=== PATIENT | male | born 1935 | race Caucasian/White ===

== ENCOUNTER 2018-02-15 06:10 | Inpatient (IN) | payer OTHER, MEDICARE ==
[2018-01-28 13:10] VITALS: BMI 29.9
[2018-02-15] MEDS ORDERED: MIDAZOLAM HCL 2 MG/2 ML SINGLE DOSE VIAL ONE (06:32)
[2018-02-15] MEDS ORDERED: SODIUM CHLORIDE 0.9% P/F 10 ML VIAL IJ ONE (06:33)
[2018-02-15] MEDS ORDERED: BUPIVACAINE LIPOSOME/PF (EXPAREL) 266 MG/20 ML VIAL ONE (06:33)
[2018-02-15] MEDS ORDERED: BUPIVACAINE HCL/PF (5 MG/ML) 30 ML VIAL IJ ONE (06:33)
[2018-02-15] MEDS ORDERED: ceFAZolin SODIUM 1 GM VIAL ONE ×2 (07:09→08:09)
[2018-02-15] MEDS ORDERED: VANCOMYCIN 1,000 MG VIAL (RESTRICTED TO ID ONLY) ONE (07:10)
[2018-02-15] MEDS ORDERED: oxyCODONE HCL 10 MG SUSTAINED ACTING TABLET PO ONE (07:17)
[2018-02-15] MEDS ORDERED: CEFAZOLIN 2 GM/D5W 2 GM/50 ML ML IVPB ONE (07:17)
[2018-02-15] MEDS ORDERED: TRANEXAMIC ACID 1000 MG/10 ML VIAL IVPUSH ONE (07:17)
--- NOTE | 2018-02-15 07:23 | HP ---
History & Physical Update - History History: No Change - Physical Physical: No Change - Assessment Assessment: No Change - Plan Plan: No Change (H&P in chart from 02/01/2018)
[2018-02-15] MEDS ORDERED: LIDOCAINE HCL/PF 2% SDV 5ML VIAL ONE (07:53)
[2018-02-15] MEDS ORDERED: PROPOFOL 20 ML ONE (07:55)
[2018-02-15] MEDS ORDERED: SUCCINYLCHOLINE CHLORIDE 200 MG/10 ML VIAL ONE (07:55)
[2018-02-15] MEDS ORDERED: TRANEXAMIC ACID 1000 MG/10 ML VIAL ONE ×2 (08:09→10:26)
[2018-02-15] MEDS ORDERED: ONDANSETRON 4 MG/2 ML VIAL ONE (08:16)
[2018-02-15] MEDS ORDERED: DEXAMETHASONE SOD PHOSPHATE 4 MG/1 ML VIAL ONE (08:16)
[2018-02-15] MEDS ORDERED: ROPIVICAINE 0.2%/MORPH PF/KETOROLAC - 51ML DISP.SYRINGE IA ONE ×2 (10:16→10:34)
[2018-02-15] MEDS ORDERED: ONDANSETRON 4 MG/2 ML VIAL IVPUSH PRN (10:50)
[2018-02-15] MEDS ORDERED: MAG HYDROX/AL HYDROX/SIMETH 30 ML UNIT-DOSE CUP PO PRN (10:50)
[2018-02-15] MEDS ORDERED: LACTATED RINGERS SOLUTION 1,000 ML IV SCH (11:00)
[2018-02-15] MEDS ORDERED: ACETAMINOPHEN 1000 MG/100 ML VIAL (NON FORMULARY) IVPB PRN (11:03)
--- NOTE | 2018-02-15 13:17 | PN ---
Physical Exam: SUBJECTIVE: Patient seen and examined, patient resting comfortably in bed, reports feeling well, denies any pain to the left lower extremity, patient is able to move the digits of the foot without any difficulty, and granddaughter at bedside OBJECTIVE: Patient is a 82 y/o male with a past medical history of bph and osteoarthritis, patient is s/p left total knee replacement, POD #0, spinal anesthesia. Vital Signs Period Temp Pulse Resp BP Sys/Gallo Pulse Ox Last 24 Hr 98.1 F-98.2 F 61-67 12-20 106-134/68-84 94-100 GENERAL: The patient is awake, alert, and fully oriented, in no acute distress. HEAD: Normal with no signs of trauma. EYES: PERRL, extraocular movements intact, sclera anicteric, conjunctiva clear. No ptosis. ENT: Ears normal, nares patent, oropharynx clear without exudates, moist mucous membranes. NECK: Trachea midline, full range of motion, supple. LUNGS: Breath sounds equal, clear to auscultation bilaterally, no wheezes, no crackles, no accessory muscle use. HEART: Regular rate and rhythm, S1, S2 without murmur, rub or gallop. ABDOMEN: Soft, nontender, nondistended, normoactive bowel sounds, no guarding, no rebound, no hepatosplenomegaly, no masses. EXTREMITIES: 2+ pulses, warm, well-perfused, no edema. LEFT LOWER EXTREMITY: Dressing CDI, less than 3 second capillary refill less than 3 second capillary refill, +3 pedal pulse, scd/ellen NEUROLOGICAL: Cranial nerves II through XII grossly intact. Normal speech, gait not observed. PSYCH: Normal mood, normal affect. SKIN: Warm, dry, normal turgor, no rashes or lesions noted Active Medications Generic Name Dose Route Start Last Admin Trade Name Freq PRN Reason Stop Dose Admin Acetaminophen 1,000 mg 02/15/18 14:00 Ofirmev Injection - IVPB 02/17/18 08:01 Q6H CHACHA Al Hydroxide/Mg Hydroxide 30 ml 02/15/18 10:50 Mylanta Oral Suspension - PO Q4H PRN DYSPEPSIA Aspirin 325 mg 02/16/18 10:00 Asa - PO BID CHACHA Fentanyl 25 mcg 02/15/18 11:05 Sublimaze Injection - IVPUSH [id number] PRN PAIN-PACU ORDER X 4 DOSES ONLY Ferrous Sulfate 325 mg 02/16/18 10:00 Feosol - PO DAILY [facility] Finasteride 5 mg 02/15/18 22:00 Proscar - PO HS [facility] Cefazolin Sodium 1 gm in 50 mls @ 100 mls/hr 02/15/18 17:00 Ancef 1 Gm Premixed Ivpb - IVPB 02/15/18 18:29 Q8H-IV CHACHA Lactated Ringer's 1,000 mls @ 125 mls/hr 02/15/18 11:00 Lactated Ringers Solution IV 02/16/18 06:00 ASDIR [facility]AC[facility] Lactated Ringer's 1,000 mls @ 75 mls/hr 02/15/18 11:15 Lactated Ringers Solution IV ASDIR [facility] Multivitamins/Minerals/Vitamin C 1 tab 02/16/18 10:00 Tab-A-Vit - PO DAILY [facility] Non-Formulary Medication 10 mg 02/15/18 22:00 Lovastatin [Lovastatin] PO HS [facility] Ondansetron HCl 4 mg 02/15/18 10:50 Zofran Injection IVPUSH Q6H PRN NAUSEA Oxycodone HCl 5 mg 02/15/18 11:05 Roxicodone - PO Q3H PRN PAIN LEVEL 1-5 Oxycodone HCl 10 mg 02/15/18 11:05 Roxicodone - PO Q3H PRN PAIN LEVEL 6-10 Oxycodone HCl 10 mg 02/15/18 22:00 Oxycontin - PO 02/18/18 11:05 BID [facility] Pantoprazole Sodium 40 mg 02/16/18 10:00 Protonix - PO DAILY [facility] Senna/Docusate Sodium 1 tablet 02/15/18 22:00 Pericolace - PO BID [facility] Tamsulosin HCl 0.4 mg 02/15/18 22:00 Flomax - PO HS [facility] ASSESSMENT/PLAN: 1) MS s/p left total knee replacement - prn pain medications - incentive spirometer - monitor hemoglobin - physical therapy as per orthopedist 2) BPH - continue flomax and proscar - monitor i/o for sign of urinary retention f/e/n - regular diet - replete electrolytes prn ppx - asa 325 mg twice a day as per orthopedist - physical therapy - protonix dispo: patient requires inpatient admission Visit type - Emergency Visit Emergency Visit: No - New Patient This patient is new to me today: No - Critical Care Critical Care patient: No - Discharge Referral Referred to [facility] Med [facility].C[facility] No
[2018-02-15] MEDS: ACETAMINOPHEN 1000 MG/100 ML VIAL (NON FORMULARY) IVPB SCH ×2 (13:42→20:38)
--- NOTE | 2018-02-15 13:47 | OP ---
Operative Note - Note: Operative Date: 02/15/18 Pre-Operative Diagnosis: Left knee osteoarthritis Operation: Left total knee makoplasty Post-Operative Diagnosis: Same as Pre-op Surgeon: Jimmy Lopez Meter Tester: Jeni Henning Anesthesiologist/WATER POLLUTION CONTROL TECHNICIAN: Kya Rosenberg Anesthesia: Spinal, Local (block) Specimens Removed: distal femur, proximal tibia Estimated Blood Loss (mls): 50 Fluid Volume Replaced (mls): 1,600 Operative Report Dictated: Yes
[2018-02-15] MEDS: CEFAZOLIN 1 GM/D5W 1 GM/50 ML BAG IVPB SCH ×2 (16:52→18:42)
--- NOTE | 2018-02-15 18:24 | OP ---
DATE OF OPERATION: DATE OF DICTATION: 02/15/2018 PREOPERATIVE DIAGNOSIS: Left knee osteoarthritis. POSTOPERATIVE DIAGNOSIS: Left knee osteoarthritis. OPERATION PERFORMED: Left cemented posterior stabilized total knee arthroplasty with the Kel robot. SURGEON: Jimmy Del Toro M.D. REAL ESTATE SALESPERSON: Nghia Hanna TYPE OF ANESTHESIA: Spinal and block. DISPOSITION: Patient returned to recovery room in stable condition. COMPONENTS USED: [place] [employer] size 5 left posterior stabilized femur, size 6 tibia, 9-mm posterior stabilized articular insert, and 31-mm patella. ESTIMATED BLOOD LOSS: 50 mL. TOTAL TOURNIQUET TIME: 120 minutes. RELEASES: Medial release. PREOPERATIVE RANGE OF MOTION: 19 degrees flexion contracture, 105 degrees of flexion, and 13 degrees of varus. FINDINGS: Severe end stage tricompartmental arthritis. INDICATION FOR PROCEDURE: Patient failed nonoperative treatment for left knee arthritis, was indicated for left total knee replacement, using a coat feller in the office and also at the hospital using a coat feller phone, I had a long discussion with the patient regarding the plan, the expected outcome, and the risks, benefits, and alternatives of surgery that including but not limited to infection which may require future surgery and removal of implants, bleeding which may require transfusion, damage to nerves, arteries, tendons, veins, muscles, and other adjacent structures leading to possible numbness, weakness, decreased function, and/or possible need for surgical repair. Also discussed possibility of intraoperative and postoperative fractures, implant loosening, stiffness, need for extensive therapy and need for revision for a variety of reasons. We also discussed blood clots and other medical complications, this was discussed at length. The consent was obtained. PROCEDURE IN DETAIL: Patient was taken to the operating room and placed on the operating table in a supine position following induction of spinal anesthesia, a well padded tourniquet was placed high on the left thigh, and the left lower extremity was prepped and draped in a sterile fashion. A timeout was performed to confirm the correct side, verified that the site was marked, confirmed the correct patient and procedure to be performed, as well as the patient was registered in the [email or web address] computer and received appropriate preoperative antibiotics and tranexamic acid, and had a compression device on the nonoperative site. We then placed our tibial and femoral arrays through stab incisions and blunt dissection, registered the hip center and the malleoli. We then elevated the tourniquet and performed a midline incision followed by medial parapatellar arthrotomy. Checkpoints were placed, bone was registered, osteophytes removed, joint was stressed and then plan was adjusted. We then made our bony cuts while protecting the surrounding soft tissues. A laminar asphalt spreader was placed sequentially in lateral and medial joint spaces. Posterior osteophytes, cruciate ligaments, and menisci were all excised. With a spacer block, we were still tight medially. We slid a periosteal elevator down the medial tibia, and then were appropriately removing soft tissue off the medial tibia, and the medial osteophytes. We then placed a trial tibial component in appropriate external rotation. We placed a femoral spreader box operator and cut the box, and then placed a femoral trial. With a 9 mm polyethylene, we had full extension and flexion to 130, and the patella tracked slightly laterally. We then measured the patella at 25 mm. We cut down to 14.5 mm and reconstructed with a 31-mm button, and performed a lateral double cut. We slightly externally rotated the tibial component more as well. With the patella trial in place, the patella tracked centrally. There was good stability, range of motion, and soft tissue tension. The tibial trial was then punched in the appropriate external rotation, trials were removed. After a 3-minute soak with diluted Betadine solution, the knee was copiously irrigated. We did perform sequential starting with the tibia and then the femur. Excess cement was removed. We inserted the final polyethylene, and it seated flush. The knee was brought to full extension. The patella was cemented, and excess cement was removed. When all the cement was hard, we copiously irrigated the knee. All excess cement was removed. The knee had full extension, flexion to 130, was well balanced in flexion and extension, and the patella tracked centrally. The knee was copiously irrigated. A gram of vancomycin powder was placed. The joint cocktail was injected. Arrays and checkpoints were removed. The arthrotomy was closed with 0 Vicryl and 0 V-Loss of consciousness; with the arthrotomy closed, there was good stability, soft tissue tension, and patella tracked centrally. 2-0 Vicryl yaima were used for the skin. The knee was wrapped in a dry sterile compressive dressing and the tourniquet was released. The compartments were soft at the end of the procedure. Pulses were palpated. The patient was returned to the recovery wound in stable condition. Mobilize, weightbearing as tolerated. Wound classification clean. Complications none. Specimens bone. JIMMY DEL TORO M.D. [id number]
[2018-02-15] MEDS ORDERED: TRANEXAMIC ACID 1000 MG/10 ML VIAL IVPB ONE (18:45)
[2018-02-15] MEDS: oxyCODONE HCL 10 MG SUSTAINED ACTING TABLET PO SCH (21:12)
[2018-02-15] MEDS: SENNOSIDES/DOCUSATE COMBO (SENNA PLUS) TABLET (UD) PO SCH (21:12)
[2018-02-15] MEDS: TAMSULOSIN HCL 0.4 MG CAP.ER.24H (FP) PO SCH (21:12)
[2018-02-15] MEDS: FINASTERIDE 5 MG TABLET (FP) PO SCH (21:13)
[2018-02-15] MEDS ORDERED: PATIENT'S OWN MEDICATION (NON-FORMULARY) (Lovastatin [Lovastatin] 10 MG) PO SCH (22:00)
[2018-02-16] MEDS ORDERED: CEFAZOLIN 1 GM/D5W 1 GM/50 ML BAG IVPB SCH (01:00)
[2018-02-16] MEDS: oxyCODONE HCL 5 MG TABLET PO PRN ×2 (01:36→14:17)
[2018-02-16] MEDS: ACETAMINOPHEN 1000 MG/100 ML VIAL (NON FORMULARY) IVPB SCH ×4 (01:37→20:26)
[2018-02-16] MEDS ORDERED: TRANEXAMIC ACID 1000 MG/10 ML VIAL IVPUSH ONE (07:06)
[2018-02-16 08:49] LABS: HEMATOCRIT 37.4 % (35.4-49); HEMOGLOBIN 13.1 GM/dl (11.7-16.9); MCH 32.1 pg (25.7-33.7); MCHC 35.1 g/dl (32.0-35.9); MEAN CELL VOLUME 91.6 fl (80-96); MEAN PLT VOLUME 7.2 fl (7.5-11.1); PLATELET COUNT 217 K/MM3 (134-434); RBC 4.08 M/mm3 (4.00-5.60); RDW 13.6 % (11.9-15.9); WHITE BLOOD COUNT 10.3 K/mm3 (4.0-10.8)
[2018-02-16 08:57] LABS: ANION GAP 5 (8-16); BLOOD UREA NITROGEN 25 mg/dl (7-18); CALCIUM 8.9 mg/dl (8.4-10.2); CHLORIDE 105 mmol/L (98-107); CO2 27 mmol/L (22-28); CREATININE 1.6 mg/dl (0.6-1.3); GLUCOSE,RANDOM 136 mg/dl (74-106); POTASSIUM 4.8 mmol/L (3.5-5.1); SODIUM 137 mmol/L (136-145)
--- NOTE | 2018-02-16 09:14 | PN ---
Progress Note (short form) - Note Progress Note: Patient seen and examined. Had bleeding overnight and dressing had to be reinforced multiple times and received additional dose of 1g TXA. Patient reports no pain in leg and no chest pain or shortness of breath. Vitals reviewed and wnl H/H from this morning reviewed and acceptable drop from pre-op, On exam No acute distress A and O x3 LLE: 2+ DP and PT pulses foot/toes warm and well profused compartments of leg and thigh soft and compressible Bandage saturated and removed incision clean and intact small seepage of dark blood from area at middle and distal incisions (between one set of yaima on each spot) Pressure held with gauze manually for 15 minutes and stopped bleeding Wiped incision with betadine New aquaacel placed with pressure dressing on top with steve and thigh high ellen Left room for 20 minutes and returned and found dressing to still be dry (no signs of bleeding through dressing anywhere) pulses, sensation, motor exam unchanged and compartments still all soft A/P: POD#1 s/p L TKA with postoperative bleeding -maintain pressure dressing and elevation of LE x24 hours -additional dose of 1.5g of TXA now -mechanical and ASA for VTE proph -skip PT today -recheck H/H tomorrow AM -discussed plan with nurse and patient
[2018-02-16] MEDS: FERROUS SO4 325 MG TABLET (FP) PO SCH (09:57)
[2018-02-16] MEDS: SENNOSIDES/DOCUSATE COMBO (SENNA PLUS) TABLET (UD) PO SCH ×2 (09:58→21:40)
[2018-02-16] MEDS: ASPIRIN 325 MG TABLET PO SCH ×2 (09:58→21:39)
[2018-02-16] MEDS: MULTIVITAMINS (DAILY MVI) TABLET (FP) PO SCH (09:58)
[2018-02-16] MEDS: PANTOPRAZOLE 40 MG TABLET (FP) PO SCH (09:58)
[2018-02-16] MEDS: oxyCODONE HCL 10 MG SUSTAINED ACTING TABLET PO SCH ×2 (10:00→21:39)
[2018-02-16] MEDS ORDERED: TRANEXAMIC ACID 1000 MG/10 ML VIAL IVPB ONE (12:00)
[2018-02-16] MEDS: LACTATED RINGERS SOLUTION 1,000 ML IV SCH ×2 (12:10→15:47)
--- NOTE | 2018-02-16 19:56 | PN ---
Physical Exam: SUBJECTIVE: Patient seen and examined at bedside. Denies pain. OBJECTIVE: Vital Signs Period Temp Pulse Resp BP Sys/Gallo Pulse Ox Last 24 Hr 97.6 F-99.0 F 65-85 18-20 104-124/58-78 96-97 GENERAL: The patient is awake, alert, and fully oriented, in no acute distress. LUNGS: CTA HEART: Regular rate and rhythm, S1, S2 ABDOMEN: Soft, nontender, nondistended LOWER EXTREMITIES: Surgical wrappings, TEDs, SCDs in place, all c/d/i; feet are warm, well-perfused, 2+ pulses, no edema. NEUROLOGICAL: Cranial nerves II through XII grossly intact. Normal speech, gait not observed. PSYCH: Normal mood, normal affect. SKIN: Warm, dry, normal turgor Laboratory Results - last 24 hr 02/16/18 02/16/18 07:10 07:10 WBC 10.3 RBC 4.08 Hgb 13.1 Hct 37.4 D MCV 91.6 MCH 32.1 MCHC 35.1 RDW 13.6 Plt Count 217 MPV 7.2 L Sodium 137 Potassium 4.8 Chloride 105 Carbon Dioxide 27 Anion Gap 5 L BUN 25 H Creatinine 1.6 H Creat Clearance w eGFR 41.80 Random Glucose 136 H D Calcium 8.9 Active Medications Generic Name Dose Route Start Last Admin Trade Name Rufinoq PRN Reason Stop Dose Admin Acetaminophen 1,000 mg 02/15/18 14:00 02/16/18 13:46 Ofirmev Injection - IVPB 02/17/18 08:01 1,000 mg Q6H CHACHA Administration Al Hydroxide/Mg Hydroxide 30 ml 02/15/18 10:50 Mylanta Oral Suspension - PO Q4H PRN DYSPEPSIA Aspirin 325 mg 02/16/18 10:00 02/16/18 09:58 Asa - PO 325 mg BID CHACHA Administration Fentanyl 25 mcg 02/15/18 11:05 Sublimaze Injection - IVPUSH [id number] PRN PAIN-PACU ORDER X 4 DOSES ONLY Ferrous Sulfate 325 mg 02/16/18 10:00 02/16/18 09:57 Feosol - PO 325 mg DAILY CHACHA Administration Finasteride 5 mg 02/15/18 22:00 02/15/18 21:13 Proscar - PO 5 mg HS CHACHA Administration Lactated Ringer's 1,000 mls @ 75 mls/hr 02/15/18 11:15 02/16/18 15:47 Lactated Ringers Solution IV Not Given ASDIR [facility] Multivitamins/Minerals/Vitamin C 1 tab 02/16/18 10:00 02/16/18 09:58 Tab-A-Vit - PO 1 tab DAILY CHACHA Administration Non-Formulary Medication 10 mg 02/15/18 22:00 Lovastatin [Lovastatin] PO HS [facility] Ondansetron HCl 4 mg 02/15/18 10:50 Zofran Injection IVPUSH Q6H PRN NAUSEA Oxycodone HCl 5 mg 02/15/18 11:05 Roxicodone - PO Q3H PRN PAIN LEVEL 1-5 Oxycodone HCl 10 mg 02/15/18 11:05 02/16/18 14:17 Roxicodone - PO 10 mg Q3H PRN Administration PAIN LEVEL 6-10 Oxycodone HCl 10 mg 02/15/18 22:00 02/16/18 10:00 Oxycontin - PO 02/18/18 11:05 10 mg BID [facility] Administration Pantoprazole Sodium 40 mg 02/16/18 10:00 02/16/18 09:58 Protonix - PO 40 mg DAILY [facility] Administration Senna/Docusate Sodium 1 tablet 02/15/18 22:00 02/16/18 09:58 Pericolace - PO 1 tablet BID [facility] Administration Tamsulosin HCl 0.4 mg 02/15/18 22:00 02/15/18 21:12 Flomax - PO 0.4 mg HS [facility] Administration ASSESSMENT/PLAN Left knee osteoarthritis s/p left total knee replacement 02/15 --post-op bleeding overnight requiring dressing changes, Hgb drop 15.9-->13.1 --no active bleeding now, surgical dressings c/d/i --dose of TXA ordered by surgery --cbc in am FREDI --Cr 1.1-->1.6 in setting of BPH --frequent urination but straight cath put out 620cc's --repeat bmp in am, if Cr still elevated consider US renal/bladder with post- void residual, urine studies BPH --continue flomax, proscar FEN Fluids: PO intake adequate Electrolytes: replete as indicated Nutrition: regular diet DVT prophylaxis: SCDs/TEDs and ASA Physical therapy Dispo: continues to require inpatient care. Full code. Visit type - Emergency Visit Emergency Visit: Yes ED Registration Date: 02/15/18 Care time: The patient presented to the Emergency Department on the above date and was hospitalized for further evaluation of their emergent condition. - New Patient This patient is new to me today: Yes Date on this admission: 02/16/18 - Critical Care Critical Care patient: No
[2018-02-16] MEDS: FINASTERIDE 5 MG TABLET (FP) PO SCH (21:40)
[2018-02-16] MEDS: TAMSULOSIN HCL 0.4 MG CAP.ER.24H (FP) PO SCH (21:40)
[2018-02-16 21:42] LABS: PH,URINE 5.5 (4.5-8); URINE APPEARANCE Clear; URINE BILIRUBIN Negative (NEGATIVE); URINE GLUCOSE (UA) Negative (NEGATIVE); URINE KETONE Negative (NEGATIVE); URINE LEUK ESTERASE Negative (NEGATIVE); URINE NITRITE Negative (NEGATIVE); URINE PROTEIN Negative (NEGATIVE); URINE UROBILINOGEN 0.2 (0.2-1.0)
[2018-02-16 21:59] LABS: URINE COLOR YELLOW
[2018-02-16 22:11] LABS: AMORP URATES FEW /hpf (NONE SEEN); EPI CELLS FEW /HPF; URINE BACTERIA RARE /hpf (NEGATIVE); URINE WBC 0-2 (0-2)
[2018-02-17] MEDS: ACETAMINOPHEN 1000 MG/100 ML VIAL (NON FORMULARY) IVPB SCH ×2 (01:16→09:32)
--- NOTE | 2018-02-17 08:44 | PN ---
Progress Note (short form) - Note Progress Note: Patient seen and examined. Cr elevated yesterday. No complaints. Pain well controlled. No numbness or tingling. Vitals reviewed and stable Dressing from yesterday morning still intact....no signs of bleeding Toes WWP, DP 2+ pulses EHL/TA/GS 5/5 strength sensation intact all nerve distributions A/P: POD#2 s/p TKA -fu Cr, if down then ok, but if not then will need medical workup -fu cbc if stable and clears PT then ok to dc home w vns, if not may need extra day dw hospitalist
[2018-02-17 09:14] LABS: ALBUMIN 3.4 g/dl (3.5-5.0); ALK PHOS 56 U/L (32-92); ANION GAP 10 (8-16); BLOOD UREA NITROGEN 30 mg/dl (7-18); CALCIUM 8.8 mg/dl (8.4-10.2); CHLORIDE 102 mmol/L (98-107); CO2 25 mmol/L (22-28); CREATININE 1.8 mg/dl (0.6-1.3); GLUCOSE,RANDOM 121 mg/dl (74-106); MAGNESIUM 1.9 mg/dL (1.8-2.4); POTASSIUM 4.5 mmol/L (3.5-5.1); SGOT/AST 26 U/L (10-42); SGPT/ALT 13 U/L (10-40); SODIUM 137 mmol/L (136-145); TOT PROT 6.2 g/dl (6.4-8.3)
[2018-02-17 09:21] LABS: HEMATOCRIT 38.1 % (35.4-49); HEMOGLOBIN 12.9 GM/dl (11.7-16.9); MCH 31.5 pg (25.7-33.7); MCHC 33.9 g/dl (32.0-35.9); MEAN CELL VOLUME 92.8 fl (80-96); MEAN PLT VOLUME 7.8 fl (7.5-11.1); PLATELET COUNT 212 K/MM3 (134-434); RDW 14.2 % (11.9-15.9)
[2018-02-17] MEDS: ASPIRIN 325 MG TABLET PO SCH ×2 (09:50→21:27)
[2018-02-17] MEDS: PANTOPRAZOLE 40 MG TABLET (FP) PO SCH (09:50)
[2018-02-17] MEDS: oxyCODONE HCL 10 MG SUSTAINED ACTING TABLET PO SCH ×2 (09:50→21:27)
[2018-02-17] MEDS: FERROUS SO4 325 MG TABLET (FP) PO SCH (09:50)
[2018-02-17] MEDS: SENNOSIDES/DOCUSATE COMBO (SENNA PLUS) TABLET (UD) PO SCH ×2 (09:50→21:28)
[2018-02-17] MEDS: MULTIVITAMINS (DAILY MVI) TABLET (FP) PO SCH (09:51)
--- NOTE | 2018-02-17 12:23 | PN ---
Physical Exam: SUBJECTIVE: Patient seen and examined, reports left knee pain well controlled, denies cp,sob palpitations, abdominal pain, N/V/D or urinary symptoms. OBJECTIVE: Vital Signs Period Temp Pulse Resp BP Sys/Gallo Pulse Ox Last 24 Hr 98.5 F-99.6 F 69-90 18-20 114-128/61-78 95-97 GENERAL: The patient is awake, alert, and fully oriented, in no acute distress. HEAD: Normal with no signs of trauma. EYES: PERRL, extraocular movements intact, sclera anicteric, conjunctiva clear. No ptosis. ENT: Ears normal, nares patent, oropharynx clear without exudates, moist mucous membranes. NECK: Trachea midline, full range of motion, supple. LUNGS: Breath sounds equal, clear to auscultation bilaterally, no wheezes, no crackles, no accessory muscle use. HEART: Regular rate and rhythm, S1, S2 without murmur, rub or gallop. ABDOMEN: Soft, nontender, nondistended, normoactive bowel sounds, no guarding, no rebound, no hepatosplenomegaly, no masses. EXTREMITIES: left knee dsg inract, no bleeding noted,2+ pulses, warm, well- perfused, no edema. NEUROLOGICAL: Cranial nerves II through XII grossly intact. Normal speech, gait not observed. PSYCH: Normal mood, normal affect. SKIN: Warm, dry, normal turgor, no rashes or lesions noted Laboratory Results - last 24 hr 02/16/18 02/17/18 02/17/18 21:30 07:00 07:00 WBC 10.0 RBC 4.10 Hgb 12.9 Hct 38.1 MCV 92.8 MCH 31.5 MCHC 33.9 RDW 14.2 Plt Count 212 MPV 7.8 Sodium 137 Potassium 4.5 Chloride 102 Carbon Dioxide 25 Anion Gap 10 BUN 30 H Creatinine 1.8 H Creat Clearance w eGFR 36.49 Random Glucose 121 H Calcium 8.8 Magnesium 1.9 Total Bilirubin 1.0 AST 26 D ALT 13 D Alkaline Phosphatase 56 D Total Protein 6.2 L Albumin 3.4 L Urine Color Yellow Urine Appearance Clear Urine pH 5.5 D Ur Specific [place] 1.010 Urine Protein Negative Urine Glucose (UA) Negative Urine Ketones Negative Urine Blood 1+ H Urine Nitrite Negative Urine Bilirubin Negative Urine Urobilinogen 0.2 Ur Leukocyte Esterase Negative Urine RBC 10-20 Urine WBC 0-2 Ur Epithelial Cells Few Amorphous Urates Few Urine Bacteria Rare Active Medications Generic Name Dose Route Start Last Admin Trade Name Fili PRN Reason Stop Dose Admin Acetaminophen 325 mg 02/17/18 09:33 Tylenol - PO Q4H PRN PAIN OR FEVER Al Hydroxide/Mg Hydroxide 30 ml 02/15/18 10:50 Mylanta Oral Suspension - PO Q4H PRN DYSPEPSIA Aspirin 325 mg 02/16/18 10:00 02/17/18 09:50 Asa - PO 325 mg BID [facility] Administration Fentanyl 25 mcg 02/15/18 11:05 Sublimaze Injection - IVPUSH [id number] PRN PAIN-PACU ORDER X 4 DOSES ONLY Ferrous Sulfate 325 mg 02/16/18 10:00 02/17/18 09:50 Feosol - PO 325 mg DAILY [facility] Administration Finasteride 5 mg 02/15/18 22:00 02/16/18 21:40 Proscar - PO 5 mg HS [facility] Administration Lactated Ringer's 1,000 mls @ 75 mls/hr 02/15/18 11:15 02/16/18 15:47 Lactated Ringers Solution IV Not Given ASDIR [facility] Multivitamins/Minerals/Vitamin C 1 tab 02/16/18 10:00 02/17/18 09:51 Tab-A-Vit - PO 1 tab DAILY [facility] Administration Non-Formulary Medication 10 mg 02/15/18 22:00 Lovastatin [Lovastatin] PO HS [facility] Ondansetron HCl 4 mg 02/15/18 10:50 Zofran Injection IVPUSH Q6H PRN NAUSEA Oxycodone HCl 5 mg 02/15/18 11:05 Roxicodone - PO Q3H PRN PAIN LEVEL 1-5 Oxycodone HCl 10 mg 02/15/18 11:05 02/16/18 14:17 Roxicodone - PO 10 mg Q3H PRN Administration PAIN LEVEL 6-10 Oxycodone HCl 10 mg 02/15/18 22:00 02/17/18 09:50 Oxycontin - PO 02/18/18 11:05 10 mg BID [facility] Administration Pantoprazole Sodium 40 mg 02/16/18 10:00 02/17/18 09:50 Protonix - PO 40 mg DAILY [facility] Administration Senna/Docusate Sodium 1 tablet 02/15/18 22:00 02/17/18 09:50 Pericolace - PO 1 tablet BID [facility] Administration Tamsulosin HCl 0.4 mg 02/15/18 22:00 02/16/18 21:40 Flomax - PO 0.4 mg HS [facility] Administration ASSESSMENT/PLAN: Patient is a 82 y/o male with a past medical history of bph and osteoarthritis, patient is s/p left total knee replacement on 02/15/2018 *Left knee osteoarthritis s/p left total knee replacement 02/15 -post-op bleeding resolved -Hgb drop 15.9-->13.1>12.9 -surgical dressings c/d/i - will f/u on CBC - sx following - PT eval done rec Home PT *FREDI, hx of BPH -Cr 1.1-->1.6 >1.8 - will start gentle hydration -ordered Renal US *BPH - will continue Flomax and Proscar FEN Fluids: PO intake adequate Electrolytes: replete as indicated Nutrition: regular diet DVT prophylaxis: SCDs/TEDs and ASA Dispo: continues to require inpatient care. Full code. Visit type - Emergency Visit Emergency Visit: Yes ED Registration Date: 02/15/18 Care time: The patient presented to the Emergency Department on the above date and was hospitalized for further evaluation of their emergent condition. - New Patient This patient is new to me today: Yes Date on this admission: 02/17/18 - Critical Care Critical Care patient: No
[2018-02-17] MEDS ORDERED: SODIUM CHLORIDE 1,000 ML IV SCH (12:45)
[2018-02-17] MEDS: LACTATED RINGERS SOLUTION 1,000 ML IV SCH (14:14)
[2018-02-17] MEDS: oxyCODONE HCL 5 MG TABLET PO PRN (14:16)
[2018-02-17] MEDS: TAMSULOSIN HCL 0.4 MG CAP.ER.24H (FP) PO SCH (21:27)
[2018-02-17] MEDS: ACETAMINOPHEN 325 MG TABLET (FP) PO PRN (21:28)
[2018-02-17] MEDS: FINASTERIDE 5 MG TABLET (FP) PO SCH (21:28)
[2018-02-18 08:20] LABS: BASO % 0.3 % (0-2.0); EOS % 1.4 % (0-4.5); HEMATOCRIT 34.8 % (35.4-49); LYMPH % 9.9 % (8-40); MCH 31.6 pg (25.7-33.7); MCHC 34.3 g/dl (32.0-35.9); MEAN PLT VOLUME 7.6 fl (7.5-11.1); MONO % 9.5 % (3.8-10.2); NEUT % 78.9 % (42.8-82.8); PLATELET COUNT 198 K/MM3 (134-434); RBC 3.78 M/mm3 (4.00-5.60); RDW 14.1 % (11.9-15.9); WHITE BLOOD COUNT 9.1 K/mm3 (4.0-10.8)
[2018-02-18 08:58] LABS: ANION GAP 8 (8-16); BLOOD UREA NITROGEN 50 mg/dl (7-18); CALCIUM 8.5 mg/dl (8.4-10.2); CHLORIDE 101 mmol/L (98-107); CO2 25 mmol/L (22-28); CREATININE 4.1 mg/dl (0.6-1.3); GLUCOSE,RANDOM 99 mg/dl (74-106); POTASSIUM 5.4 mmol/L (3.5-5.1); SODIUM 134 mmol/L (136-145)
--- NOTE | 2018-02-18 09:35 | PN ---
Physical Exam: SUBJECTIVE: Patient seen and examined, Resting comfortably a bedside chair, reports discomfort for Licea catheter to urinary meatus OBJECTIVE: Patient is a 82 y/o male with a past medical history of bph and osteoarthritis, patient is s/p left total knee replacement, POD #3, spinal anesthesia. Vital Signs Period Temp Pulse Resp BP Sys/Gallo Pulse Ox Last 24 Hr 98.9 F-99.8 F 78-90 17-20 113-147/67-83 94-98 GENERAL: The patient is awake, alert, and fully oriented, in no acute distress. HEAD: Normal with no signs of trauma. EYES: PERRL, extraocular movements intact, sclera anicteric, conjunctiva clear. No ptosis. ENT: Ears normal, nares patent, oropharynx clear without exudates, moist mucous membranes. NECK: Trachea midline, full range of motion, supple. LUNGS: Breath sounds equal, clear to auscultation bilaterally, no wheezes, no crackles, no accessory muscle use. HEART: Regular rate and rhythm, S1, S2 without murmur, rub or gallop. ABDOMEN: Soft, nontender, nondistended, normoactive bowel sounds, no guarding, no rebound, no hepatosplenomegaly, no masses. : Licea catheter, continue clear yellow urine noted EXTREMITIES: 2+ pulses, warm, well-perfused, no edema. NEUROLOGICAL: Cranial nerves II through XII grossly intact. Normal speech, gait not observed. PSYCH: Normal mood, normal affect. SKIN: Warm, dry, normal turgor, no rashes or lesions noted Laboratory Results - last 24 hr 02/18/18 02/18/18 07:15 07:15 WBC 9.1 RBC 3.78 L Hgb 12.0 Hct 34.8 L MCV 92.0 MCH 31.6 MCHC 34.3 RDW 14.1 Plt Count 198 MPV 7.6 Absolute Neuts (auto) 7.2 Neutrophils % 78.9 D Lymphocytes % 9.9 D Monocytes % 9.5 Eosinophils % 1.4 Basophils % 0.3 Sodium 134 L Potassium 5.4 H Chloride 101 Carbon Dioxide 25 Anion Gap 8 BUN 50 H Creatinine 4.1 H Creat Clearance w eGFR 14.11 Random Glucose 99 Calcium 8.5 Active Medications Generic Name Dose Route Start Last Admin Trade Name Freq PRN Reason Stop Dose Admin Acetaminophen 325 mg 02/17/18 09:33 02/17/18 21:28 Tylenol - PO 325 mg Q4H PRN Administration PAIN OR FEVER Al Hydroxide/Mg Hydroxide 30 ml 02/15/18 10:50 Mylanta Oral Suspension - PO Q4H PRN DYSPEPSIA Aspirin 325 mg 02/16/18 10:00 02/17/18 21:27 Asa - PO 325 mg BID CHACHA Administration Fentanyl 25 mcg 02/15/18 11:05 Sublimaze Injection - IVPUSH [id number] PRN PAIN-PACU ORDER X 4 DOSES ONLY Ferrous Sulfate 325 mg 02/16/18 10:00 02/17/18 09:50 Feosol - PO 325 mg DAILY CHACHA Administration Finasteride 5 mg 02/15/18 22:00 02/17/18 21:28 Proscar - PO 5 mg HS [facility] Administration Lactated Ringer's 1,000 mls @ 75 mls/hr 02/15/18 11:15 02/17/18 14:14 Lactated Ringers Solution IV Not Given ASDIR CHACHA Sodium Chloride 1,000 mls @ 50 mls/hr 02/17/18 12:45 02/17/18 14:13 Normal Saline - IV 02/18/18 12:32 50 mls/hr ASDIR CHACHA Administration Multivitamins/Minerals/Vitamin C 1 tab 02/16/18 10:00 02/17/18 09:51 Tab-A-Vit - PO 1 tab DAILY CHACHA Administration Non-Formulary Medication 10 mg 02/15/18 22:00 Lovastatin [Lovastatin] PO HS [facility] Ondansetron HCl 4 mg 02/15/18 10:50 Zofran Injection IVPUSH Q6H PRN NAUSEA Oxycodone HCl 5 mg 02/15/18 11:05 02/17/18 14:16 Roxicodone - PO 5 mg Q3H PRN Administration PAIN LEVEL 1-5 Oxycodone HCl 10 mg 02/15/18 11:05 02/16/18 14:17 Roxicodone - PO 10 mg Q3H PRN Administration PAIN LEVEL 6-10 Oxycodone HCl 10 mg 02/15/18 22:00 02/17/18 21:27 Oxycontin - PO 02/18/18 11:05 10 mg BID CHACHA Administration Pantoprazole Sodium 40 mg 02/16/18 10:00 02/17/18 09:50 Protonix - PO 40 mg DAILY CHACHA Administration Senna/Docusate Sodium 1 tablet 02/15/18 22:00 02/17/18 21:28 Pericolace - PO 1 tablet BID CHACHA Administration Tamsulosin HCl 0.4 mg 02/15/18 22:00 02/17/18 21:27 Flomax - PO 0.4 mg HS CHACHA Administration IMAGING ULTRASOUND OF KIDNEY/PELVIS: lARGE POST VOID RESIDUAL NOTED OF 670 Ml, MILD RIGHT HYDRONEPHROSIS ASSESSMENT/PLAN: 1) left knee osteoarthritis s/p left total knee replacement 02/15 - no post-op bleeding Noted - hemoglobin 12.9 -surgical dressings c/d/i - Physical therapy 2)Nephrology - creatine 4.1, Secondary to obstructive uropathy, Licea catheter placed, repeat BMP at 1800, strict monitoring of creatine, if not improving will consult nephrology. - patient does have a known history of bph, continue flomax and proscar, pt will require outpatient follow up with urology. f/e/n - low sodium diet - replete electrolytes prn ppx - aspirin as per physical therapy - pepcid dispo: pt requires inpatient admission secondary to FREDI Visit type - Emergency Visit Emergency Visit: No - New Patient This patient is new to me today: No - Critical Care Critical Care patient: No - Discharge Referral Referred to [facility] Med P.C.: No
[2018-02-18] MEDS: FERROUS SO4 325 MG TABLET (FP) PO SCH (09:48)
[2018-02-18] MEDS: SENNOSIDES/DOCUSATE COMBO (SENNA PLUS) TABLET (UD) PO SCH ×2 (09:48→21:15)
[2018-02-18] MEDS: ASPIRIN 325 MG TABLET PO SCH ×2 (09:49→21:15)
[2018-02-18] MEDS: PANTOPRAZOLE 40 MG TABLET (FP) PO SCH (09:49)
[2018-02-18] MEDS: oxyCODONE HCL 5 MG TABLET PO PRN ×3 (09:49→21:16)
[2018-02-18] MEDS: MULTIVITAMINS (DAILY MVI) TABLET (FP) PO SCH (09:49)
[2018-02-18] MEDS: oxyCODONE HCL 10 MG SUSTAINED ACTING TABLET PO SCH (09:50)
[2018-02-18] MEDS: LACTATED RINGERS SOLUTION 1,000 ML IV SCH (11:32)
[2018-02-18 18:26] LABS: ANION GAP 9 (8-16); BLOOD UREA NITROGEN 39 mg/dl (7-18); CALCIUM 8.6 mg/dl (8.4-10.2); CHLORIDE 99 mmol/L (98-107); CO2 23 mmol/L (22-28); CREATININE 2.5 mg/dl (0.6-1.3); GLUCOSE,RANDOM 167 mg/dl (74-106); POTASSIUM 4.7 mmol/L (3.5-5.1); SODIUM 131 mmol/L (136-145)
[2018-02-18] MEDS: FINASTERIDE 5 MG TABLET (FP) PO SCH (21:15)
[2018-02-18] MEDS: TAMSULOSIN HCL 0.4 MG CAP.ER.24H (FP) PO SCH (21:15)
[2018-02-18] MEDS: ACETAMINOPHEN 325 MG TABLET (FP) PO PRN (21:16)
[2018-02-18] MEDS ORDERED: ACETAMINOPHEN 325 MG TABLET (FP) PO PRN (22:53)
[2018-02-18 23:18] LABS: EOS % 0.8 % (0-4.5); HEMATOCRIT 35.4 % (35.4-49); HEMOGLOBIN 12.4 GM/dl (11.7-16.9); LYMPH % 7.1 % (8-40); MCH 31.5 pg (25.7-33.7); MCHC 34.9 g/dl (32.0-35.9); MEAN CELL VOLUME 90.2 fl (80-96); MONO % 9.3 % (3.8-10.2); NEUT % 81.8 % (42.8-82.8); PLATELET COUNT 223 K/MM3 (134-434); RBC 3.93 M/mm3 (4.00-5.60); RDW 13.9 % (11.9-15.9); WHITE BLOOD COUNT 8.1 K/mm3 (4.0-10.8)
[2018-02-19 09:31] LABS: ANION GAP 10 (8-16); BLOOD UREA NITROGEN 31 mg/dl (7-18); CALCIUM 8.8 mg/dl (8.4-10.2); CHLORIDE 101 mmol/L (98-107); CO2 24 mmol/L (22-28); CREATININE 1.5 mg/dl (0.6-1.3); GLUCOSE,RANDOM 119 mg/dl (74-106); SODIUM 135 mmol/L (136-145)
[2018-02-19] MEDS: ASPIRIN 325 MG TABLET PO SCH (09:41)
[2018-02-19] MEDS: SENNOSIDES/DOCUSATE COMBO (SENNA PLUS) TABLET (UD) PO SCH (09:42)
[2018-02-19] MEDS: PANTOPRAZOLE 40 MG TABLET (FP) PO SCH (09:42)
[2018-02-19] MEDS: FERROUS SO4 325 MG TABLET (FP) PO SCH (09:42)
[2018-02-19] MEDS: MULTIVITAMINS (DAILY MVI) TABLET (FP) PO SCH (09:42)
--- NOTE | 2018-02-19 10:38 | DS ---
Physical Exam: SUBJECTIVE: Patient seen and examined, reports OBJECTIVE: Patient is a 82 y/o male with a past medical history of bph and osteoarthritis , patient is s/p left total knee replacement, POD #4, spinal anesthesia. Vital Signs Period Temp Pulse Resp BP Sys/Gallo Pulse Ox Last 24 Hr 98.8 F-987 F 79-106 18-19 113-136/66-78 96-98 PHYSICAL EXAM GENERAL: The patient is awake, alert, and fully oriented, in no acute distress. HEAD: Normal with no signs of trauma. EYES: PERRL, extraocular movements intact, sclera anicteric, conjunctiva clear. ENT: Ears normal, nares patent, oropharynx clear without exudates, moist mucous membranes. NECK: Trachea midline, full range of motion, supple. LUNGS: Breath sounds equal, clear to auscultation bilaterally, no wheezes, no crackles, no accessory muscle use. HEART: Regular rate and rhythm, S1, S2 without murmur, rub or gallop. ABDOMEN: Soft, nontender, nondistended, normoactive bowel sounds, no guarding, no rebound, no hepatosplenomegaly, no masses. EXTREMITIES: 2+ pulses, warm, well-perfused, no edema. LEF NEUROLOGICAL: Cranial nerves II through XII grossly intact. Normal speech, gait not observed. PSYCH: Normal mood, normal affect. SKIN: Warm, dry, normal turgor, no rashes or lesions noted. LABS Laboratory Results - last 24 hr 02/18/18 02/18/18 02/19/18 18:00 23:00 07:20 WBC 8.1 RBC 3.93 L Hgb 12.4 Hct 35.4 MCV 90.2 MCH 31.5 MCHC 34.9 RDW 13.9 Plt Count 223 MPV 7.0 L Absolute Neuts (auto) 6.5 Neutrophils % 81.8 Lymphocytes % 7.1 L D Monocytes % 9.3 Eosinophils % 0.8 Basophils % 1.0 D Sodium 131 L 135 L Potassium 4.7 5.0 Chloride 99 101 Carbon Dioxide 23 24 Anion Gap 9 10 BUN 39 H 31 H Creatinine 2.5 H 1.5 H Creat Clearance w eGFR 24.97 45.03 Random Glucose 167 H D 119 H D Calcium 8.6 8.8 HOSPITAL COURSE: Date of Admission:02/15/18 Date of Discharge: 02/19/18 Minutes to complete discharge: 45 Discharge Summary Reason For Visit: LEFT KNEE OSTEOARTHRITIS Condition: Improved - Instructions Referrals: Jimmy Lopez MD [Staff Physician] - Disposition: VNS/HOME HEALTH CARE - Home Medications Comprehensive Discharge Medication List: Ambulatory Orders Finasteride [Proscar -] 5 mg PO HS 01/28/18 Lovastatin 10 mg PO HS 01/28/18 Tamsulosin HCl 0.4 mg PO HS 01/28/18 Aspirin [Ecotrin] 325 mg PO ONCE 02/15/18 - Discharge Referral Referred to [facility] Med [facility].C.: No
[2018-02-19 14:05] VITALS: BP 119/61; PULSE 81; TEMP 98.2
--- NOTE | 2018-02-20 14:53 | PATH ---
Surgical Pathology Report Patient Name: DESIREE PEREZ Med. Rec. #: [id number] /Age/Gender: 1935 (Age: 82) / M Account: [id number] Location: [facility] Taken: 02/15/2018 Received: 02/15/2018 Reported: 02/20/2018 Physicians: Jimmy Lopez M.D. Specimen(s) Received LEFT KNEE BONE AND SOFT TISSUE Clinical History Left knee osteoarthritis Final Diagnosis KNEE BONE AND SOFT TISSUE, LEFT, TOTAL KNEE REPLACEMENT: DEGENERATIVE JOINT DISEASE. Electronically Signed Jeni Alicea M.D. Gross Description Received in formalin labeled "left knee bone and soft tissue," is a 13.5 x 9.5 x 2.0 cm aggregate of multiple portions of bone and soft tissue. The tibial plateau measures 7.7 x 5.3 x 2.0 cm. There are multiple areas of eburnation present, measuring up to 3.1 cm in greatest dimension. The underlying trabecular bone is yellow and hard. Neurophysiology Tech sections are submitted in one cassette, following decalcification. 02/18/2018 [facility]02/18/2018
== END 2018-02-19 14:25 | disposition home health service (06) | DRG 470 ==
LOC: FM/S 06:10
PROVIDERS: ADMIT Orthopaedic Surgery; ATTEND Nurse Practitioner Family
PROC: 8E0Y0CZ Robotic Assisted Procedure of Lower Extremity, Open Approach (ICD-10-PCS; 2018-02-15)
PROC: 0SRD0J9 Replacement of Left Knee Joint with Synthetic Substitute, Cemented, Open Approach (ICD-10-PCS; principal; 2018-02-15 08:33)
DX: M17.12 Unilateral primary osteoarthritis, left knee (principal); N17.9 Acute kidney failure, unspecified; M96.830 Postprocedural hemorrhage of a musculoskeletal structure following a musculoskeletal system procedure; R71.0 Precipitous drop in hematocrit; N13.30 Unspecified hydronephrosis; N40.0 Benign prostatic hyperplasia without lower urinary tract symptoms; Y83.9 Surgical procedure, unspecified as the cause of abnormal reaction of the patient, or of later complication, without mention of misadventure at the time of the procedure; N13.9 Obstructive and reflux uropathy, unspecified
CPT/HCPCS: 36415; 73560-TC-LT-FY; 76775-TC; 76856-TC; 80048; 80053; 81003; 81015; 83735; 85025; 85027; 87040; 88304-TC; 88311-TC; 94760; 97116-GP; 97161-GP; J0131; J7030